=== PATIENT | male | born 2005 | race Hispanic/Latino ===

== ENCOUNTER 2023-12-08 15:45 | Emergency (ER) | payer OTHER, BC ==
[~2023-12-08] VITALS: Ht 180.3 cm; Wt 113.4 kg
[2023-12-08 16:46] VITALS: PULSE 64; RESP 16; TEMP 98.2
[2023-12-08] MEDS ORDERED: ONDANSETRON ODT4 MG PO (17:08)
[2023-12-08 18:10] VITALS: BP 133/76; PULSE 64; RESP 16; TEMP 98.2; O2SAT 100
== END 2023-12-08 17:12 | disposition home or self-care (01) ==
LOC: ER 15:55
DX: R10.11 Right upper quadrant pain (principal); R11.2 Nausea with vomiting, unspecified; F17.210 Nicotine dependence, cigarettes, uncomplicated
CPT/HCPCS: 99282